=== PATIENT | female | born 1985 | race Caucasian/White ===

== ENCOUNTER → 2023-08-20 12:06 | Outpatient (CLI) | payer OTHER, MEDICAID, SELFPAY ==
--- NOTE | 2023-08-20 | DI.US.S_ITS ---
PROCEDURE: US OB FOLLOW UP INDICATIONS: LOW-LYING PLACENTA OUTSIDE/PRIOR DATING DATA: Last menstrual period (LMP): 12/25/2022. LMP-based estimated date of delivery (TIFFANIE): 10/01/2023. First dating scan (date and location): 03/14/2023. Estimated date of delivery (TIFFANIE) from first dating scan: 10/19/2023. The calculations are made using the ultrasound TIFFANIE of 10/19/2023. TECHNIQUE: Real-time scanning was performed of the fetus, with image documentation. Endovaginal scanning: Not performed COMPARISON: None. FINDINGS: A single living intrauterine gestation is present. Presentation: Vertex. Placenta: Placental position is anterior, without previa. Inferior placental edge is now 5.4 cm from the internal os Amniotic fluid index: 13.6 cm, normal range is 5-24 cm. Single deepest vertical pocket is 5.0 cm. heart rate: 157 beats per minute. Maternal cervical canal: 3.8 cm long. Normal lower limit is 2.5 cm. Clinically estimated gestational age: 31 weeks 3 days Estimated gestational age from initial scan: 31 weeks 3 days IMPRESSION: Living 3rd trimester intrauterine with no sonographic evidence of complications. No evidence of low lying placenta. Dictated by: Mundo Cummins M.D. on 08/20/2023 at 18:31 Approved by: Mundo Cummins M.D. on 08/20/2023 at 18:34
== END ==
PROVIDERS: Referring Provider Advanced Practice Midwife; Visit Provider Advanced Practice Midwife
DX: O44.03 Complete placenta previa NOS or without hemorrhage, third trimester (principal); Z3A.31 31 weeks gestation of pregnancy
CPT/HCPCS: 76816